=== PATIENT | male | born 1990 ===

== ENCOUNTER 2016-12-25 02:00 | Inpatient (IN) | payer OTHER ==
--- NOTE | 2016-12-25 02:25 | C.PDOC ---
Time Seen by Provider: 12/25/16 02:18 Chief Complaint (Nursing): Back Pain Past Medical History Vital Signs: Last Vital Signs Temp 98.1 F 12/25/16 02:11 Pulse 73 12/25/16 02:11 Resp 20 12/25/16 02:11 BP 138/86 12/25/16 02:11 Pulse Ox 98 12/25/16 02:11 - Social History Hx Alcohol Use: No Hx Substance Use: No - Immunization History Hx Tetanus Toxoid Vaccination: Yes Hx Influenza Vaccination: No Hx Pneumococcal Vaccination: No ED Course And Treatment O2 Sat by Pulse Oximetry: 98
[2016-12-25] MEDS ORDERED: Sodium Chloride 0.9% 1,000 ML IV ONE (02:26)
--- NOTE | 2016-12-25 02:26 | C.PDOC ---
History Of Present Illness 26 year old patient presents to the ED complaining of right side pain for the past 4 days. The pain is constant, non-radiating, and worse with movement. Patient states the pain is worse today. Patient also states he has a loss of appetite due to the pain. Patient denies any injuries, falls, strenuous activity , fever, nausea, vomiting, shortness of breath, shoulder pain, back pain, swelling, bruising, cough or cold symptoms. Patient also denies taking any medications for the pain. Time Seen by Provider: 12/25/16 02:18 Chief Complaint (Nursing): Chest Pain History Per: Patient History/Exam Limitations: no limitations Onset/Duration Of Symptoms: Days (4), Worse Since (today) Current Symptoms Are (Timing): Still Present Severity: Moderate Pain Scale Rating Of: 4 Recent travel outside of the [place]: No Past Medical History Reviewed: Historical Data, Nursing Documentation, Vital Signs Vital Signs: Last Vital Signs Temp 98.1 F 12/25/16 02:11 Pulse 73 12/25/16 02:11 Resp 20 12/25/16 02:11 BP 138/86 12/25/16 02:11 Pulse Ox 100 12/25/16 04:29 - Medical History PMH: No Chronic Diseases Surgical History: Appendectomy Family History: States: Unknown Family Hx - Social History Hx Alcohol Use: Yes Hx Substance Use: No - Immunization History Hx Tetanus Toxoid Vaccination: Yes Hx Influenza Vaccination: Yes Hx Pneumococcal Vaccination: Yes Review Of Systems Except As Marked, All Systems Reviewed And Found Negative. Constitutional: Negative for: Fever Respiratory: Negative for: Cough, Shortness of Breath Gastrointestinal: Negative for: Nausea, Vomiting Musculoskeletal: Negative for: Shoulder Pain, Back Pain Skin: Negative for: Bruising, Other (swelling) Physical Exam - Physical Exam Appears: Non-toxic, No Acute Distress Skin: Warm, Dry Head: Atraumatic, Normacephalic Eye(s): bilateral: Normal Inspection, EOMI Neck: Normal ROM, Supple Chest: Symmetrical, No Deformity, No Tenderness Cardiovascular: Rhythm Regular Respiratory: Normal Breath Sounds, No Rales, No Rhonchi, No Wheezing Gastrointestinal/Abdominal: Soft, Tenderness (RUQ), No Mass, No Distention, No Guarding, No Rebound, Other (obese) Back: Normal Inspection, No CVA Tenderness Extremity: Normal ROM Neurological/Psych: Oriented x3, Normal Speech Gait: Steady ED Course And Treatment - Laboratory Results Result Diagrams: 12/25/16 02:41 12/25/16 02:41 Lab Interpretation: Abnormal O2 Sat by Pulse Oximetry: 100 (RA) Pulse Ox Interpretation: Normal - CT Scan/US Abdomen/Pelvis CT Other Rad Studies (CT/US): Read By Radiologist (Drea Purvis MD), Radiology Report Reviewed CT/US Interpretation: EXAM: CT Abdomen and Pelvis With Intravenous Contrast. CLINICAL HISTORY: 26 years old, male; Pain; Abdominal pain; Additional info: Ruq pain for 4 days. TECHNIQUE: Axial computed tomography images of the abdomen and pelvis with intravenous contrast. This CT. exam was performed using one or more of the following dose reduction techniques: automated. exposure control, adjustment of the mA and/or kV according to patient size, and/ or use of iterative. reconstruction technique. Coronal and sagittal reformatted images were created and reviewed. EXAM DATE/TIME: 12/25/2016 2:27 AM. COMPARISON: No relevant prior studies available. FINDINGS: There is a small amount of haziness in the fat adjacent to the gallbladder concerning for acute. infectious/inflammatory process. No gallstones are identified. The liver is decreased in attenuation consistent with fatty infiltration. The spleen is normal. The pancreas is normal. No hydronephrosis or perinephric stranding. Colonic diverticulosis is present. A normal appendix is identified images 68 through 79 series 2, coronal images 65 through 68. IMPRESSION: Haziness in the fat surrounding the gallbladder concerning for cholecystitis. If clinically indicated,. ultrasound or HIDA scan may be helpful. Medical Decision Making Medical Decision Making: Impression: 26 y/o male with RUQ pain Plan: * Abdomen/Pelvis CT * Labs * Pepcid * IV fluids * Toradol Progress: Lab reviewed showing leukocytosis, no bands CT shows abnormal fat surrounding gallbladder concerning for cholecystitis and recommends US. Given clinical scenario will treat as acute nathalia and Dr Knutson agrees and suggests calling surgery [id number] Rodriguez who accepts patient to service and requests contacting director surgical. Spoke with resident who will come to ED. Disposition - Disposition Disposition: HOSPITALIZED Disposition Time: 04:38 Condition: GUARDED - Clinical Impression Clinical Impression: Cholecystitis - PA / FISH HEADER / Resident Statement MD/ has reviewed & agrees with the documentation as recorded. - Scribe Statement The provider has reviewed the documentation as recorded by the Scribe Taryn Dave All medical record entries made by the Scribe were at my direction and personally dictated by me. I have reviewed the chart and agree that the record accurately reflects my personal performance of the history, physical exam, medical decision making, and the department course for this patient. I have also personally directed, reviewed, and agree with the discharge instructions and disposition. Decision To Admit - Pt Status Changed To: Hospital Disposition Of: Inpatient - Admit Certification Admit to Inpatient:: After my assessment, the patient will require hospitalization for at least two midnights. This is because of the severity of symptoms shown, intensity of services needed, and/or the medical risk in this patient being treated as an outpatient. - InPatient: Physician Admission Certification: I certify that this patient requires 2 or more midnights of care for the following reason:: Patient with RUQ pain and elevated WBC and CT showing cholecystitis - . Bed Request Type: Regular Admitting Physician: Israel Rodriguez Patient Diagnosis: Cholecystitis
[2016-12-25] MEDS ORDERED: Sodium Chloride 0.9% 1,000 ML ONE (02:40)
[2016-12-25 02:44] LABS: BASO # 0.1 K/uL (0.0-0.2); BASO % 0.6 % (0.0-2.0); EOS # 0.2 K/uL (0.0-0.7); EOS % 1.4 % (0.0-4.0); LYMPH # 2.3 K/uL (1.0-4.3); LYMPH % 16.5 % (20.0-40.0); MEAN CELL VOLUME 88.4 fL (80.0-94.0); MEAN CORPUSCULAR HEMOGLOBIN 28.7 pg (27.0-31.0); MEAN CORPUSCULAR HGB CONC 32.4 g/dL (33.0-37.0); MEAN PLATELET VOLUME 10.2 fL (7.2-11.7); MONO # 1.5 K/uL (0.0-0.8); MONO % 10.6 % (0.0-10.0); RED CELL DISTRIBUTION WIDTH 13.4 % (11.5-14.5); WHITE BLOOD COUNT 14.1 K/uL (4.8-10.8)
[2016-12-25 02:52] LABS: CHLORIDE 98 mmol/L (98-107); SODIUM 140 mmol/L (132-148)
[2016-12-25 02:53] LABS: POTASSIUM 4.3 mmol/L (3.6-5.2)
[2016-12-25 02:55] LABS: ALB/GLOB RATIO 1.4 (1.0-2.1); ALKALINE PHOSPHATASE 74 U/L (38-126); ALT/SGPT 79 U/L (21-72); AST/SGOT 38 U/L (17-59); BILIRUBIN,TOTAL 1.2 mg/dL (0.2-1.3); BLOOD UREA NITROGEN 11 mg/dL (9-20); CARBON DIOXIDE 25 mmol/L (22-30); GFR AFRICAN-AMERICAN > 60; GLUCOSE,RANDOM 114 mg/dL (75-110); TOTAL PROTEIN 8.5 g/dL (6.3-8.3)
[2016-12-25 02:56] LABS: CALCIUM 8.9 mg/dl (8.6-10.4)
[2016-12-25] MEDS ORDERED: Iohexol 350mg/ml 100 ML ONE (03:25)
[2016-12-25] MEDS ORDERED: Iohexol 350mgl/ml 50 ML ONE (03:25)
[2016-12-25] MEDS ORDERED: Piperacillin/Tazobact 3.375 gm 100 ML IV STA (04:22)
[2016-12-25] MEDS ORDERED: Piperacillin/Tazobact 3.375 gm 100 ML IVPB ONE (04:41)
[2016-12-25] MEDS ORDERED: Piperacill/Tazo 3.375gm in Dex 50 ML IVPB SCH (04:45)
[2016-12-25] MEDS ORDERED: DiphenhydrAMINE 50 mg/ml Inj IVP STA (05:09)
[2016-12-25] MEDS ORDERED: DiphenhydrAMINE 50 mg/ml Inj ONE (05:11)
[2016-12-25] MEDS: Sodium Chloride 0.9% 1,000 ML IV SCH ×2 (05:15→13:31)
--- NOTE | 2016-12-25 06:50 | CP.PCM.HP ---
History of Present Illness - History of Present Illness History of Present Illness: Surgery H&P Pt is a 26M with no PMHx who presented to for abdominal pain. Pt states pain started on Wed and was located in the RUQ. He denies association of pain with food, but states moving around made the pain worse. States pain was bearable on Wednesday so he decided to wait it out. However as the week progressed, the pain got worse and finally last night he decided to come to the ER.He denies any other associated symptoms such as nausea, vomiting, diarrhea. States he has never had a similar episode in the past. In the ER, pt had a CT abdomen which shows GB with pericholecystic fluid, r/o cholecystitis. Currently, pt is resting comfortably in bed. States pain has mostly resolved. Denies N/V, F/C, chest pain or SOB. PMHx: denies PSHx: denies SocialHx: denies smoking, EtOH/drugs NKDA Present on Admission - Present on Admission Any Indicators Present on Admission: No Review of Systems - Review of Systems All systems: reviewed and no additional remarkable complaints except (as per HPI ) Past Patient History - Past Social History Smoking Status: Never Smoked - PSYCHIATRIC Hx Substance Use: No - SURGICAL HISTORY Hx Surgeries: No - ANESTHESIA Hx Anesthesia: No Meds Allergies/Adverse Reactions: Allergies Allergy/AdvReac Type Severity Reaction Status Date / Time No Known Allergies Allergy Verified 12/25/16 02:21 Physical Exam - Constitutional Appears: Well, No Acute Distress - Head Exam Head Exam: ATRAUMATIC, NORMOCEPHALIC - Eye Exam Eye Exam: Normal appearance - ENT Exam ENT Exam: Mucous Membranes Moist - Respiratory Exam Respiratory Exam: NORMAL BREATHING PATTERN - Cardiovascular Exam Cardiovascular Exam: RRR - GI/Abdominal Exam GI & Abdominal Exam: Soft, Tenderness (RUQ). absent: Distended, Guarding, Rebound - Extremities Exam Extremities exam: Negative for: tenderness - Neurological Exam Neurological exam: Alert, Oriented x3 - Skin Skin Exam: Dry, Intact, Warm Results - Vital Signs Recent Vital Signs: Last Vital Signs Temp 98.1 F 12/25/16 02:11 Pulse 84 12/25/16 05:35 Resp 16 12/25/16 05:35 BP 124/84 12/25/16 05:35 Pulse Ox 100 12/25/16 06:24 - Labs Result Diagrams: 12/25/16 02:41 12/25/16 02:41 - Imaging and Cardiology CT scan - abdomen Status: Image reviewed by me Assessment & Plan - Assessment and Plan (Free Text) Assessment: 26M with abdominal pain, r/o cholecystitis Plan: - will order US of the abdomen - Keep NPO - IVF, IV ABX, pain management - d/w Dr. Michael Rees, PGY-2 Surgery
[2016-12-25 06:51] LABS: RBC URINE < 1 /hpf (0-3); URINE BILIRUBIN NEGATIVE (NEGATIVE); URINE BLOOD NEGATIVE (NEGATIVE); URINE COLOR Straw (YELLOW); URINE GLUCOSE (UA) NORMAL (Normal); URINE KETONE NEGATIVE (NEGATIVE); URINE LEUKOCYTE ESTERASE NEG Leu/uL (Negative); URINE PROTEIN NEGATIVE (NEGATIVE); URINE UROBILINOGEN NORMAL mg/dL (0.2-1.0); WBC URINE < 1 /hpf (0-5)
[2016-12-25] MEDS: Ciprofloxacin 400mg/200ml D5W 200 ML IVPB SCH ×2 (08:53→19:17)
--- NOTE | 2016-12-25 09:08 | CT ---
PROCEDURE: CT Abdomen and Pelvis with contrast HISTORY: RUQ pain for 4 days COMPARISON: December 25, 2016. Abdominal ultrasound. TECHNIQUE: Contrast dose: 100 cc Omnipaque 350. Radiation dose: Total exam DLP = 1320.90 mGy-cm. This CT exam was performed using one or more of the following dose reduction techniques: Automated exposure control, adjustment of the mA and/or kV according to patient size, and/or use of iterative reconstruction technique. FINDINGS: LOWER THORAX: Unremarkable. LIVER: Hepatic steatosis. No focal masses. No intrahepatic bile duct dilatation or perihepatic ascites. Hepatomegaly. GALLBLADDER AND BILE DUCTS: Gallstones apparent on the ultrasound are not clearly seen on the CT scan. PANCREAS: Unremarkable. No gross lesion or ductal dilatation. SPLEEN: Unremarkable. ADRENALS: Unremarkable. No mass. KIDNEYS AND URETERS: Unremarkable. No hydronephrosis. No solid mass. VASCULATURE: Unremarkable. No aortic aneurysm. BOWEL: Unremarkable. No obstruction. No gross mural thickening. Diverticulosis without an acute inflammatory component or other associated pathologic process. APPENDIX: Normal appendix. PERITONEUM: Unremarkable. No free fluid. No free air. LYMPH NODES: Unremarkable. No enlarged lymph nodes. BLADDER: Unremarkable. REPRODUCTIVE: Unremarkable. BONES: No acute fracture. OTHER FINDINGS: None. IMPRESSION: Hepatomegaly/hepatic steatosis. No acute findings related to/accounting for the clinical presentation. Concordant results (preliminary interpretation) provided by [facility]. Procedure Completed: 03:24. Preliminary ([facility]) Report: Dictated and Authenticated: 04:08. Final Interpretation: 09:06. December 25, 2016.
--- NOTE | 2016-12-25 11:21 | US ---
HISTORY: abdominal pain COMPARISON: December 25, 2016. CT abdomen and pelvis. None. TECHNIQUE: Sonographic evaluation of the abdomen. FINDINGS: LIVER: Measures 18.9 cm. Hepatopedal blood flow. Fatty infiltration manifest ultrasonographically as increased echogenicity of the liver parenchyma. No mass. No intrahepatic bile duct dilatation. GALLBLADDER: Cholelithiasis. Negative study for gallbladder wall thickening, pericholecystic fluid, sonographic Frank's sign. COMMON BILE DUCT: Measures 4.7 mm. No stones. No dilatation. PANCREAS: Unremarkable as visualized. No mass. No ductal dilatation. RIGHT KIDNEY: Measures 6.5 x 11.4cm. Normal echogenicity. No calculus, mass, or hydronephrosis. AORTA: No aneurysmal dilatation. IVC: Unremarkable. OTHER FINDINGS: None. IMPRESSION: Cholelithiasis. No sonographic evidence of acute cholecystitis. Hepatomegaly/hepatic steatosis.
[2016-12-25] MEDS ORDERED: Propofol 10 mg/ml Inj (20 ML) ONE (13:35)
[2016-12-25] MEDS ORDERED: Midazolam 2 MG/2 ML VIAL ONE (13:35)
[2016-12-25] MEDS ORDERED: Lactated Ringer's 1,000 ML IV ONE ×2 (14:04→15:34)
[2016-12-25] MEDS ORDERED: Neostigmine Methylsulfate 3mg/3ml Syringe IV ONE (15:54)
--- NOTE | 2016-12-25 16:30 | PCM.SURG1 ---
Surgeon's Initial Post Op Note - Surgeon's Notes Surgeon: Dr. Rodriguez Power Switchboard Operator: Dr. Hernadez PGY-2 Type of Anesthesia: General Endo Pre-Operative Diagnosis: Symptomatic cholelithiasis Operative Findings: Inflammed gallbladder packed with gallstones Post-Operative Diagnosis: Acute cholecystitis Operation Performed: Laparoscopic cholecystectomy Specimen/Specimens Removed: gallbladder Estimated Blood Loss: EBL {In ML}: 50 Blood Products Given: N/A Drains Used: No Drains Post-Op Condition: Fair Date of Surgery/Procedure: 12/25/16 Time of Surgery/Procedure: 16:30
[2016-12-25] MEDS ORDERED: DiphenhydrAMINE 50 mg/ml Inj IVP PRN (16:33)
[2016-12-25] MEDS ORDERED: Dexamethasone 4 mg/1 ml IVP PRN (16:33)
[2016-12-25] MEDS ORDERED: Lactated Ringer's 1,000 ML IV SCH (16:45)
[2016-12-25] MEDS: HYDROmorphone 0.5 mg/0.5 ml ISec IVP PRN ×2 (16:57→17:21)
[2016-12-25 17:55] VITALS: RESP 20
--- NOTE | 2016-12-25 21:16 | OP ---
PROCEDURE DATE: 12/25/2016 SURGEON: Dr. Rodriguez. SUPERVISOR FOOD CHECKERS AND CASHIERS: Dr. Hernadez, Dr. Santos. ANESTHESIA: General, WHEEL MOLDER [place]. PREOPERATIVE DIAGNOSIS: Cholelithiasis. POSTOPERATIVE DIAGNOSIS: Acute cholecystitis. PROCEDURE: Laparoscopic cholecystectomy. DESCRIPTION OF OPERATION: With the patient in the supine position under adequate general anesthesia, the abdomen was prepped and draped in the usual sterile manner. Veress needle puncture was performed at the umbilicus with insufflation to 15 cm water pressure of CO2 and a 10 mm laparoscopic trocar was inserted via an infraumbilical incision. Under direct vision, additional trocars were inserted in the epigastrium and right costal margin. There was noted to be some bleeding from the skin around the epigastric trocar site and a pursestring suture of 2-0 silk was placed surrounding this site with control of the bleeding. No bleeding was noted downward into the peritoneal cavity. The gallbladder was visualized. It was noted to have adherent omentum and to be thickened and tensely distended. The gallbladder was aspirated of approximately 40 mL of bile allowing the fundus to be grasped. The gallbladder remained thickened though and appeared to be packed with stones. The omentum was peeled down off the gallbladder and the infundibular area was grasped and retracted laterally. Inflammatory reaction was then dissected off the gallbladder allowing identification of the cystic duct. The plane medial to the gallbladder was carefully dissected to confirm the presence of just the cystic duct and the cystic artery, which were then triply clipped and divided. The gallbladder was then dissected free of the liver bed using electrocautery. The liver bed was also edematous consistent with acute cholecystitis. The liver bed was inspected for hemostasis and the dissection was completed. The gallbladder was placed in a specimen retrieval bag and removed via the umbilical port site, which was enlarged somewhat to allow passage of the gallbladder. The right upper quadrant was irrigated and suctioned. The pneumoperitoneum was released and the trocars were removed. The umbilical port site was closed with a [id number] fascial suture of 0 Vicryl. All incisions were closed with 4-0 Monocryl and Steri-Strips. Dry sterile dressings were applied. The patient tolerated the procedure well and transferred to recovery room in stable condition. Estimated blood loss for the procedure was 50 mL. Israel Rodriguez MD cc: 58 TT: 12/25/2016 21:15:02 jn MTDD
[2016-12-26] MEDS: Sodium Chloride 0.9% 1,000 ML IV SCH ×3 (02:11→12:45)
[2016-12-26 05:59] LABS: BASO % 0.2 % (0.0-2.0); EOS % 0.2 % (0.0-4.0); HEMATOCRIT 36.7 % (35.0-51.0); LYMPH # 2.9 K/uL (1.0-4.3); LYMPH % 21.5 % (20.0-40.0); MEAN CORPUSCULAR HEMOGLOBIN 28.9 pg (27.0-31.0); MEAN CORPUSCULAR HGB CONC 32.8 g/dL (33.0-37.0); MEAN PLATELET VOLUME 10.2 fL (7.2-11.7); MONO # 1.9 K/uL (0.0-0.8); WHITE BLOOD COUNT 13.4 K/uL (4.8-10.8)
[2016-12-26 06:17] LABS: CHLORIDE 99 mmol/L (98-107)
[2016-12-26 06:18] LABS: POTASSIUM 3.8 mmol/L (3.6-5.2); SODIUM 141 mmol/L (132-148)
[2016-12-26 06:20] LABS: ALB/GLOB RATIO 1.2 (1.0-2.1); AST/SGOT 86 U/L (17-59); BILIRUBIN,TOTAL 0.8 mg/dL (0.2-1.3); BLOOD UREA NITROGEN 10 mg/dL (9-20); CARBON DIOXIDE 28 mmol/L (22-30); GFR AFRICAN-AMERICAN > 60; TOTAL PROTEIN 5.9 g/dL (6.3-8.3)
[2016-12-26 06:21] LABS: ALKALINE PHOSPHATASE 51 U/L (38-126); ALT/SGPT 131 U/L (21-72); CALCIUM 7.7 mg/dl (8.6-10.4); GLUCOSE,RANDOM 104 mg/dL (75-110)
--- NOTE | 2016-12-26 08:33 | CP.PCM.PN ---
Subjective - Date & Time of Evaluation Date of Evaluation: 12/26/16 Time of Evaluation: 08:29 - Subjective Subjective: Surgery: Dr. Rodriguez Patient doing well today. Complains of some soreness around surgical sites. Denies f/c/n/v. Tolerating regular diet. Has been OOB. Objective - Vital Signs/Intake and Output Vital Signs (last 24 hours): Temp Pulse Resp BP Pulse Ox 98.4 F 97 H 20 112/67 99 12/26/16 07:02 12/26/16 07:02 12/26/16 07:02 12/26/16 07:02 12/26/16 07:02 Intake and Output: 12/26/16 12/26/16 06:59 18:59 Intake Total 1944 Balance 1944 - Medications Medications: Current Medications Sodium Chloride (Sodium Chloride 0.9%) 1,000 mls @ 125 mls/hr IV .Q8H [facility] Last Admin: 12/26/16 04:10 Dose: 125 mls/hr Ciprofloxacin (Cipro 400mg/200ml Dsw) 200 mls @ 133 mls/hr IVPB Q12H [facility] Last Admin: 12/25/16 19:17 Dose: 133 mls/hr Morphine Sulfate (Morphine) 4 mg IVP Q4 PRN PRN Reason: Pain, moderate (4-7) Ondansetron HCl (Zofran Inj) 4 mg IVP Q4H PRN PRN Reason: Nausea/Vomiting Pneumococcal Polyvalent Vaccine (Pneumovax 23 Vaccine) 0.5 ml IM .ONCE ONE Stop: 12/27/16 10:01 - Labs Labs: 12/26/16 05:53 12/26/16 05:53 - Constitutional Appears: Non-toxic, No Acute Distress - Head Exam Head Exam: ATRAUMATIC, NORMOCEPHALIC - Eye Exam Eye Exam: EOMI, Normal appearance - ENT Exam ENT Exam: Mucous Membranes Moist - Respiratory Exam Respiratory Exam: NORMAL BREATHING PATTERN. absent: Respiratory Distress - Cardiovascular Exam Cardiovascular Exam: REGULAR RHYTHM. absent: Tachycardia - GI/Abdominal Exam GI & Abdominal Exam: Soft. absent: Distended, Guarding, Rigid, Tenderness, Rebound Additional comments: dressing CDI - Neurological Exam Neurological Exam: Alert, Awake, Oriented x3 - Psychiatric Exam Psychiatric exam: Normal Affect, Normal Mood - Skin Skin Exam: Dry, Normal Color, Warm Assessment and Plan - Assessment and Plan (Free Text) Assessment: 26 y/o male s/p lap nathalia POD1 Plan: -f/u diet tolerance this am -most likely d/c home today -encourage OOB -d/c IVFs -po pain control -will d/w Dr. Michael Moran PGY1
[2016-12-26] MEDS: Ciprofloxacin 400mg/200ml D5W 200 ML IVPB SCH (09:00)
[2016-12-26 14:33] VITALS: BP 122/84; PULSE 88; TEMP 98.5; O2SAT 98
[2016-12-27] MEDS ORDERED: Pneumococcal 23-Valent Vaccine IM ONE (10:00)
== END 2016-12-26 14:50 | disposition home or self-care (01) | DRG 419 ==
LOC: C.ER 02:00 → C.9E 04:39 → C.6T 09:06
PROVIDERS: ADMIT Specialist; ATTEND Specialist
PROC: 0FT44ZZ Resection of Gallbladder, Percutaneous Endoscopic Approach (ICD-10-PCS; principal; 2016-12-25 13:00)
DX: K80.00 Calculus of gallbladder with acute cholecystitis without obstruction (principal)